=== PATIENT | female | born 1970 | race Caucasian/White ===

== ENCOUNTER 2019-12-14 09:41 | Outpatient (CLI) | payer OTHER, SELFPAY ==
[2019-12-14 10:07] LABS: Basophils # 0.1 10^3/uL (0.0-0.1); Basophils % 0.8 %; Eosinophils # 0.2 10^3/uL (0.0-0.8); Eosinophils % 2.6 %; Hematocrit 43.5 % (37.0-47.0); Hemoglobin 13.7 g/dL (11.5-15.3); Lymphocytes # 1.8 10^3/uL (0.8-4.8); Lymphocytes % 22.8 %; Mean Corpuscular HGB Conc 31.5 g/dL (30.0-36.0); Mean Corpuscular Hemoglobin 27.3 pg (28.0-34.0); Mean Corpuscular Volume 86.8 fL (81-99); Mean Platelet Volume 11.7 fL (7.4-10.4); Monocytes # 0.6 10^3/uL (0.2-0.9); Monocytes % 7.7 %; Neutrophils # 5.2 10^3/uL (1.8-7.7); Neutrophils % 65.8 %; Nucleated Red Blood Cells % 0 %; Platelet Count 212 10^3/cmm (130-400); Red Blood Count 5.01 10^6/uL (4.1-5.3); Red Cell Distribution Width 14.7 % (12.1-15.1); White Blood Count 7.8 10^3/uL (4.0-10.0)
[2019-12-14 11:08] LABS: Alanine Aminotransferase 23 U/L (0-33); Albumin Level 4.8 g/dL (3.5-5.2); Alkaline Phosphatase 67 IU/L (35-105); Anion Gap 19.1 (5-19); Aspartate Amino Transferase 25 U/L (0-32); Blood Urea Nitrogen 15 mg/dL (6-20); Calcium 9.9 mg/dL (8.5-10.5); Carbon Dioxide 22 mmol/L (22-29); Chloride 102 mmol/L (98-107); Chol HDL Ratio 3.23 mg/dL (0.0-4.40); Cholesterol 213 mg/dL (0-200); Globulin 2.8 g/dL (1.3-4.6); Glomerular Filtration Rate 76.2 mL/min (90-130); Glucose 98 mg/dL (65-115); HDL Cholesterol 66 mg/dL (60-100); LDL Cholesterol Calculated 117 mg/dL (50-129); LDL HDL Ratio 1.77 RATIO (0.00-3.22); Osmolality Calculated 284 mOsm/kg (285-295); Potassium 4.1 mmol/L (3.5-5.1); Sodium 139 mmol/L (136-145); T3 Free 2.8 PG/ML (2.0-4.4); Thyroid Stimulating Hormone 1.44 uIU/mL (0.27-4.20); Total Bilirubin 0.4 mg/dL (0.15-1.2); Total Protein 7.6 g/dL (6.6-8.7); Triglycerides 148 mg/dL (0-150)
[2019-12-14 11:09] LABS: Testosterone Total 2.5 ng/dL (8.4-48.1)
[2019-12-14 12:51] LABS: Estradiol. 16.7 pg/mL
[2019-12-14 12:55] LABS: 25 Hydroxy Vitamin D 54 ng/mL (30-100)
[2019-12-14 12:56] LABS: Follicle Stimulating Hormone 24.6 mIU/mL; Vitamin B12 434 pg/mL (232-1245)
[2019-12-16 11:46] LABS: T4 Total 6.6 mcg/dL (5.1-11.9)
[2019-12-19 20:41] LABS: Testosterone, Free 0.7 pg/mL (0.2-5.0)
== END 2019-12-14 09:42 | disposition home or self-care (01) ==
PROVIDERS: Family Provider Internal Medicine; Visit Provider Internal Medicine
DX: R53.83 Other fatigue (principal); E03.9 Hypothyroidism, unspecified
CPT/HCPCS: 36415; 80053; 80061; 82306; 82607; 82670; 83001; 84403; 84436; 84443; 84481; 85025; 86376

== ENCOUNTER 2020-01-29 11:40 | Outpatient (CLI) | payer OTHER, SELFPAY ==
[2020-01-29 12:38] LABS: T3 Free 3.2 PG/ML (2.0-4.4); Testosterone Total 292.3 ng/dL (2.9-40.8); Thyroid Stimulating Hormone 0.65 uIU/mL (0.27-4.20)
[2020-01-29 14:56] LABS: Follicle Stimulating Hormone 46.4 mIU/mL
[2020-01-30 12:01] LABS: T4 Total 5.3 mcg/dL (5.1-11.9)
== END 2020-01-29 11:41 | disposition home or self-care (01) ==
LOC: LAB 11:50
PROVIDERS: Visit Provider Nurse Practitioner Obstetrics & Gynecology
DX: R53.83 Other fatigue (principal); R63.5 Abnormal weight gain
CPT/HCPCS: 36415; 82670; 83001; 84403; 84436; 84443; 84481

== ENCOUNTER 2020-04-21 17:19 | Outpatient (CLI) | payer OTHER, SELFPAY ==
[2020-04-21 18:09] LABS: Follicle Stimulating Hormone 44.2 mIU/mL
== END 2020-04-21 17:20 | disposition home or self-care (01) ==
LOC: LAB 17:24
PROVIDERS: Visit Provider Nurse Practitioner Obstetrics & Gynecology
DX: Z79.890 Hormone replacement therapy (principal)
CPT/HCPCS: 83001

== ENCOUNTER → 2020-06-05 09:04 | Outpatient (BNVA) | payer OTHER, SELFPAY | PROVIDERS: Visit Provider Internal Medicine | DX: Z20.828 Contact with and (suspected) exposure to other viral communicable diseases (principal) | CPT/HCPCS: 87635 ==

== ENCOUNTER → 2020-06-09 11:26 | Outpatient (BNVA) | payer OTHER, SELFPAY | PROVIDERS: Visit Provider Internal Medicine | DX: Z20.828 Contact with and (suspected) exposure to other viral communicable diseases (principal); R53.83 Other fatigue | CPT/HCPCS: 87635 ==